=== PATIENT | male | born 1980 | race Caucasian/White ===

== ENCOUNTER 2018-05-05 06:22 | Day surgery (SDC) | payer OTHER ==
[~2018-05-05] VITALS: Ht 165.1 cm; Wt 77.8 kg
[2018-05-05 06:56] VITALS: Ht 165.1 cm; Wt 77.8 kg
[2018-05-05] MEDS ORDERED: NO MEDS. (06:58)
[2018-05-05 07:06] VITALS: BP 127/74; PULSE 72; RESP 14
[2018-05-05] MEDS ORDERED: MIDAZOLAM 1 MG/ML 2 ML INJ ONE (08:11)
[2018-05-05] MEDS ORDERED: FENTAnyl 50 MCG/ML VIAL ONE (08:11)
[2018-05-05 08:30] VITALS: BP 108/69; PULSE 66; RESP 18
--- NOTE | 2018-05-05 15:57 | CONS ---
DATE OF ADMISSION: 05/05/2018 DATE OF CONSULTATION: PATIENT NAME: ISABEL WHITMAN TYPE OF CONSULTATION: Preoperative gastroenterology. I thank you very much for this kind referral. HISTORY OF PRESENT ILLNESS: Mr. Isabel Baxter is a 38-year-old male patient who has been refe rred to me for further evaluation of upper abdominal pain and chronic heartburn, not responding to th erapy. The patient had a course of therapy with omeprazole without any relief. He has stopped the m edication at the present time. No past history of peptic ulcer disease. Not on nonsteroidal anti-in flammatory agents. No history of gallstones. The patient has history of fatty liver. Denies any ch joaquin in the bowel habit or rectal bleeding. The patient had abdominal ultrasound and no other abnorm ality was detected other than the fatty liver. Not a hypertensive or diabetic. No heart disease, [place] ng problem or kidney disease. SOCIAL HISTORY: Nonsmoker. No alcohol abuse. FAMILY HISTORY: No family history of gastrointestinal tract neoplasm. ALLERGIES: NO DRUG ALLERGIES. MEDICATIONS: None. PHYSICAL EXAMINATION: VITAL SIGNS: He is 5 feet, 5 inches tall and weighs 168 pounds. HEART: Normal heart sounds. LUNGS: Clear. ABDOMEN: Soft. No masses. Normal bowel sounds. NEUROLOGIC: Normal. IMPRESSION: 1. Upper abdominal pain and chronic heartburn, not responding to therapy. 2. The patient had a course of therapy with omeprazole without any relief and he has stopped the med ication. 3. The patient had abdominal ultrasound and he was noted to have fatty liver. PLAN: 1. The patient was advised to lose weight and have a low-fat diet. He also needs good control of se rum lipids because of the fatty liver. 2. Endoscopic examination for further evaluation. The procedure and possible complications are well explained to the patient. He understands and conse nts to the procedure. I thank you once again. With warmest personal regards, Dictated By: SAMEER PARKER/TYRESE Conf#: [id number] DID#: [id number]
== END 2018-05-05 11:07 | disposition home or self-care (01) ==
LOC: GIL 06:22
PROVIDERS: ATTEND Internal Medicine Gastroenterology
DX: K21.9 Gastro-esophageal reflux disease without esophagitis (principal); K29.60 Other gastritis without bleeding
CPT/HCPCS: 43239; 88305; 88312; J2250; J3010; Z7610